=== PATIENT | male | born 1955 | race Caucasian/White ===

== ENCOUNTER 2017-01-07 12:43 | Inpatient (IN) | payer OTHER ==
[~2017-01-07] VITALS: Ht 177.8 cm; Wt 98.2 kg
[2017-01-07 13:03] LABS: EOSINOPHIL COUNT 0.1 K/uL (0-0.3); HEMATOCRIT 42.5 % (38.0-50.0); IMMATURE GRANULOCYTE (%) 0.4 % (0.0-0.7); INSTRUMENT ABS NEUTROPHIL CT 5.9 K/uL; LYMPHOCYTE COUNT 2.4 K/uL (1.0-2.8); MCH 31.6 PG (29.0-34.0); MCHC 33.9 G/DL (30.0-36.0); MCV 93.2 FL (86-99); MEAN PLAT.VOLUME 9.7 uM^3 (9.0-12.4); MONOCYTE (%) 6.1 % (3-12); MONOCYTE COUNT 0.6 K/uL (0-0.8); NEUTROPHIL (%) 65.4 % (45-76); NEUTROPHIL COUNT 5.9 K/uL (1.8-6.4); PLATELET COUNT 235 K/uL (156-360); RBC DIS.WIDTH-CV 12.8 % (11.8-14.6); RBC DIS.WIDTH-SD 44.1 % (39-53); RED BLOOD COUNT 4.56 M/uL (4.00-5.50)
[2017-01-07 13:11] LABS: AMYLASE 32 IU/L (1-118); CHLORIDE 109 mEq/L (99-109); POTASSIUM 4.2 mEq/L (3.7-5.4); SODIUM 141 mEq/L (136-147)
[2017-01-07 13:13] LABS: GLUCOSE 99 mg/dL (70-99)
[2017-01-07 13:14] LABS: ANION GAP 9 MEQ/L (2-14)
[2017-01-07 13:16] LABS: GFR ESTIMATE (CALCULATED) > 59 mL/min/; SERUM ETHYL ALCOHOL < 10 mg/dL
[2017-01-07 13:17] LABS: UREA NITROGEN (BUN) 18 mg/dL (9-23)
[2017-01-07 13:19] LABS: LIPASE 10 U/L (1.0-51.0)
[2017-01-07 13:44] LABS: TROP-I INTERPRETATION NEGATIVE; TROPONIN-I < 0.01 ng/mL (0.0-0.30)
[2017-01-07 15:25] LABS: ADD MIUA? YES; BILIRUBIN NEGATIVE; BLOOD LARGE; COLOR YELLOW ((YELLOW)); GLUCOSE (STRIP) NEGATIVE; KETONES NEGATIVE; LEUKOCYTES NEGATIVE; NITRITE NEGATIVE; PROTEIN (STRIP) NEGATIVE; UROBILINOGEN 0.2 MG/DL (0.2-1.0)
[2017-01-07] MEDS ORDERED: MELOXICAM15 MG PO (15:29)
[2017-01-07 15:52] LABS: AMPHETAMINE NEGATIVE (500 ng/mL); BARBITURATES NEGATIVE (200 ng/mL); BENZODIAZEPINES NEGATIVE (150 ng/mL); COCAINE NEGATIVE (150 ng/mL); INTERNAL CONTROLS VALID? YES; METHADONE NEGATIVE (200 ng/mL); METHAMPHETAMINE NEGATIVE (500 ng/mL); OPIATES (MORPHINE) NEGATIVE (100 ng/mL); OXYCODONE NEGATIVE (100 ng/mL); PHENCYCLIDINE NEGATIVE (25 ng/mL); PROPOXYPHENE NEGATIVE (300 ng/mL); THC CANNABINOIDS NEGATIVE (50 ng/mL); TRICYCLIC ANTIDEPRESSANTS NEGATIVE (300 ng/mL)
[2017-01-07 16:15] LABS: RED BLOOD CELLS TNTC /HPF (0-5); WHITE BLOOD CELLS 0-5 /HPF (0-5)
[2017-01-07 16:16] LABS: BACTERIA NONE SEEN /HPF; EPITHELIAL CELLS NONE SEEN /HPF; MUCUS NONE SEEN /LPF; UCUL ADDED? YES
[2017-01-08] VITALS (7 sets, daily range): BP systolic 109–129; BP diastolic 56–71
[2017-01-08 06:33] LABS: ALKALINE PHOSPHATASE 47 IU/L (3-129); ANION GAP 8 MEQ/L (2-14); CHLORIDE 106 MEQ/L (99-109); GFR ESTIMATE (CALCULATED) > 59 mL/min/; POTASSIUM 4.3 MEQ/L (3.7-5.4); SAMPLE HEMOLYSIS CHECK 0; SAMPLE ICTERIC CHECK 0; SAMPLE LIPEMIA CHECK 0; SODIUM 138 MEQ/L (136-147); TOTAL BILIRUBIN 0.6 MG/DL (0.0-1.0); UREA NITROGEN (BUN) 15 mg/dL (9-23)
[2017-01-08 06:39] LABS: GLUCOSE 181 mg/dL (70-99)
[2017-01-08 06:43] LABS: HEMATOCRIT 32.1 % (38.0-50.0); MCHC 33.6 G/DL (30.0-36.0); MCV 95.3 FL (86-99); MEAN PLAT.VOLUME 10.1 uM^3 (9.0-12.4); PLATELET COUNT 203 K/uL (156-360); RBC DIS.WIDTH-SD 45.9 % (39-53); RED BLOOD COUNT 3.37 M/uL (4.00-5.50); WHITE BLOOD COUNT 6.7 K/uL (4.1-10.2)
[2017-01-09 03:53] VITALS: BP 116/63
[2017-01-09 06:29] LABS: MCH 31.6 PG (29.0-34.0); MCV 95.7 FL (86-99); MEAN PLAT.VOLUME 10.6 uM^3 (9.0-12.4); PLATELET COUNT 182 K/uL (156-360); RBC DIS.WIDTH-CV 13.2 % (11.8-14.6); RBC DIS.WIDTH-SD 46.4 % (39-53); RED BLOOD COUNT 2.82 M/uL (4.00-5.50); WHITE BLOOD COUNT 9.7 K/uL (4.1-10.2)
[2017-01-09 06:52] LABS: ANION GAP 6 MEQ/L (2-14); CHLORIDE 107 MEQ/L (99-109); GFR ESTIMATE (CALCULATED) > 59 mL/min/; POTASSIUM 4.4 MEQ/L (3.7-5.4); SAMPLE HEMOLYSIS CHECK 0; SAMPLE ICTERIC CHECK 0; SAMPLE LIPEMIA CHECK 0; SODIUM 140 MEQ/L (136-147); UREA NITROGEN (BUN) 15 mg/dL (9-23)
[2017-01-09 06:54] LABS: GLUCOSE 117 mg/dL (70-99)
[2017-01-09 08:27] VITALS: BP 124/60
[2017-01-09 14:44] LABS: ADD MIUA? NO; BILIRUBIN NEGATIVE; BLOOD NEGATIVE; COLOR YELLOW ((YELLOW)); GLUCOSE (STRIP) NEGATIVE; KETONES 5; LEUKOCYTES NEGATIVE; NITRITE NEGATIVE; PROTEIN (STRIP) NEGATIVE; SPECIFIC GRAVITY 1.018 (1.000-1.030); UCUL ADDED? NO
[2017-01-09 17:07] VITALS: BP 127/79
[2017-01-10 00:09] VITALS: BP 124/64
[2017-01-10 06:15] LABS: HEMATOCRIT 27.3 % (38.0-50.0); MCH 31.9 PG (29.0-34.0); MCV 96.8 FL (86-99); MEAN PLAT.VOLUME 10.6 uM^3 (9.0-12.4); PLATELET COUNT 179 K/uL (156-360); RBC DIS.WIDTH-CV 13.2 % (11.8-14.6); RBC DIS.WIDTH-SD 47.3 % (39-53); RED BLOOD COUNT 2.82 M/uL (4.00-5.50); WHITE BLOOD COUNT 8.8 K/uL (4.1-10.2)
[2017-01-10 06:36] LABS: ANION GAP 7 MEQ/L (2-14); CHLORIDE 105 MEQ/L (99-109); GFR ESTIMATE (CALCULATED) > 59 mL/min/; GLUCOSE 107 mg/dL (70-99); POTASSIUM 4.1 MEQ/L (3.7-5.4); SAMPLE HEMOLYSIS CHECK 0; SAMPLE ICTERIC CHECK 0; SAMPLE LIPEMIA CHECK 0; SODIUM 141 MEQ/L (136-147); UREA NITROGEN (BUN) 16 mg/dL (9-23)
[2017-01-10 07:30] VITALS: BP 120/70
[2017-01-10] MEDS ORDERED: TRAMADOL HCL50 MG PO (13:00)
[2017-01-10] MEDS ORDERED: SENNA LAX8.6 MG PO (13:00)
[2017-01-10] MEDS ORDERED: CHLORZOXAZONE500 MG PO (13:00)
[2017-01-10] MEDS ORDERED: OXYCODONE HCL5 MG PO (13:00)
[2017-01-10] MEDS ORDERED: LOVENOX40 MG/0.4 SC (13:00)
[2017-01-10] MEDS ORDERED: NIFEREX-150,FE150 MG PO (13:00)
[2017-01-10 15:24] VITALS: BP 116/65
[2017-01-10] MEDS ORDERED: ACID REDUCER20 MG PO (17:45)
[2017-01-10] MEDS ORDERED: MIRALAX17 GM PO (17:48)
[2017-01-10] MEDS ORDERED: OXYCODONE HCL10 MG PO (17:49)
[2017-01-10] MEDS ORDERED: TYLENOL EXTRA500 MG PO (17:52)
[2017-01-10] MEDS ORDERED: ZOFRAN4 MG PO (17:54)
[2017-01-10] MEDS ORDERED: MAALOX ADVANCE355 ML PO (17:57)
== END 2017-01-10 15:49 | DRG 958 ==
LOC: TRA 12:43 → EDOF 15:22 → 3EAST 15:22 → ENRESERV 15:23 → 3EAST 01-08 00:30
PROVIDERS: Emergency Medicine; Surgery
DX: S82.452B Displaced comminuted fracture of shaft of left fibula, initial encounter for open fracture type I or II (principal); S82.252B Displaced comminuted fracture of shaft of left tibia, initial encounter for open fracture type I or II; S06.0X9A Concussion with loss of consciousness of unspecified duration, initial encounter; S12.600A Unspecified displaced fracture of seventh cervical vertebra, initial encounter for closed fracture; S01.01XA Laceration without foreign body of scalp, initial encounter; S00.01XA Abrasion of scalp, initial encounter; S36.892A Contusion of other intra-abdominal organs, initial encounter; S37.012A Minor contusion of left kidney, initial encounter; S92.351A Displaced fracture of fifth metatarsal bone, right foot, initial encounter for closed fracture; S91.301A Unspecified open wound, right foot, initial encounter; S93.124A Dislocation of metatarsophalangeal joint of right lesser toe(s), initial encounter; S40.811A Abrasion of right upper arm, initial encounter; S40.812A Abrasion of left upper arm, initial encounter; V03.10XA Pedestrian on foot injured in collision with car, pick-up truck or van in traffic accident, initial encounter; D62 Acute posthemorrhagic anemia; R40.2410 Glasgow coma scale score 13-15, unspecified time; M50.322 Other cervical disc degeneration at C5-C6 level
CPT/HCPCS: 70450; 71260; 72040; 72125; 72129; 72132; 73590; 73600; 73630; 73700; 74177; 76000; 80048; 80053; 81003; 82150; 83690; 84484; 85025; 85027; 86850; 86900; 86901; 87086; 93005; 97530 GP; 99281; 99284; C1713; G0480; J0131; J0330; J0690; J1100; J1170; J1650; J2250; J2405; J3010; J3480; J7120

== ENCOUNTER 2017-01-10 12:48 | Inpatient (IN) | payer OTHER ==
[~2017-01-10] VITALS: Ht 177.8 cm; Wt 92.2 kg
[~2017-01-10 12:48] MED LIST: MELOXICAM15 MG PO
[2017-01-10] MEDS ORDERED: CHLORZOXAZONE500 MG PO (13:00)
[2017-01-10] MEDS ORDERED: SENNA LAX8.6 MG PO (13:00)
[2017-01-10] MEDS ORDERED: TRAMADOL HCL50 MG PO (13:00)
[2017-01-10] MEDS ORDERED: OXYCODONE HCL5 MG PO (13:00)
[2017-01-10] MEDS ORDERED: NIFEREX-150,FE150 MG PO (13:00)
[2017-01-10] MEDS ORDERED: LOVENOX40 MG/0.4 SC (13:00)
[2017-01-10 16:19] VITALS: BP 108/63
[2017-01-10] MEDS ORDERED: ACID REDUCER20 MG PO (17:45)
[2017-01-10] MEDS ORDERED: MIRALAX17 GM PO (17:48)
[2017-01-10] MEDS ORDERED: OXYCODONE HCL10 MG PO (17:49)
[2017-01-10] MEDS ORDERED: TYLENOL EXTRA500 MG PO (17:52)
[2017-01-10] MEDS ORDERED: ZOFRAN4 MG PO (17:54)
[2017-01-10] MEDS ORDERED: MAALOX ADVANCE355 ML PO (17:57)
[2017-01-10 23:54] VITALS: BP 125/77
[2017-01-11 04:47] VITALS: BP 114/68
[2017-01-11 06:43] LABS: MCH 32.1 PG (29.0-34.0); MCHC 33.3 G/DL (30.0-36.0); MCV 96.2 FL (86-99); MEAN PLAT.VOLUME 10.1 uM^3 (9.0-12.4); RBC DIS.WIDTH-CV 13.3 % (11.8-14.6); RBC DIS.WIDTH-SD 46.5 % (39-53); RED BLOOD COUNT 3.12 M/uL (4.00-5.50); WHITE BLOOD COUNT 8.2 K/uL (4.1-10.2)
[2017-01-11 06:56] LABS: ALKALINE PHOSPHATASE 54 IU/L (3-129); ANION GAP 6 MEQ/L (2-14); CHLORIDE 104 MEQ/L (99-109); GFR ESTIMATE (CALCULATED) > 59 mL/min/; GLUCOSE 93 mg/dL (70-99); POTASSIUM 4.8 MEQ/L (3.7-5.4); SAMPLE HEMOLYSIS CHECK 0; SAMPLE ICTERIC CHECK 0; SAMPLE LIPEMIA CHECK 0; SODIUM 140 MEQ/L (136-147); UREA NITROGEN (BUN) 17 mg/dL (9-23)
[2017-01-11 07:00] LABS: TOTAL BILIRUBIN 0.8 MG/DL (0.0-1.0)
[2017-01-11 07:13] LABS: PLATELET COUNT 235 K/uL (156-360)
[2017-01-11 15:13] VITALS: BP 117/70
[2017-01-12 05:30] VITALS: BP 119/71
[2017-01-12 15:02] VITALS: BP 107/69
[2017-01-13 05:00] VITALS: BP 110/72
[2017-01-13 16:20] VITALS: BP 111/77
[2017-01-14 05:17] VITALS: BP 118/79
[2017-01-14 15:53] VITALS: BP 117/65
[2017-01-15 05:34] VITALS: BP 118/68
[2017-01-15 15:38] VITALS: BP 135/74
[2017-01-16 05:12] LABS: EOSINOPHIL (%) 2.3 % (0-5); EOSINOPHIL COUNT 0.1 K/uL (0-0.3); HEMATOCRIT 28.6 % (38.0-50.0); IMMATURE GRANULOCYTE (%) 1.9 % (0.0-0.7); IMMATURE GRANULOCYTE COUNT 0.1 K/uL; INSTRUMENT ABS NEUTROPHIL CT 3.6 K/uL; LYMPHOCYTE COUNT 1.6 K/uL (1.0-2.8); MCH 32.8 PG (29.0-34.0); MCHC 33.9 G/DL (30.0-36.0); MCV 96.6 FL (86-99); MEAN PLAT.VOLUME 9.5 uM^3 (9.0-12.4); MONOCYTE (%) 11.8 % (3-12); MONOCYTE COUNT 0.7 K/uL (0-0.8); NEUTROPHIL (%) 57.4 % (45-76); NEUTROPHIL COUNT 3.6 K/uL (1.8-6.4); RBC DIS.WIDTH-CV 13.2 % (11.8-14.6); RED BLOOD COUNT 2.96 M/uL (4.00-5.50); WHITE BLOOD COUNT 6.2 K/uL (4.1-10.2)
[2017-01-16 05:18] LABS: PLATELET COUNT 332 K/uL (156-360)
[2017-01-16 05:22] VITALS: BP 125/75
[2017-01-16 05:23] LABS: CHLORIDE 105 mEq/L (99-109); POTASSIUM 4.6 mEq/L (3.7-5.4); SODIUM 139 mEq/L (136-147)
[2017-01-16 05:26] LABS: GLUCOSE 91 mg/dL (70-99)
[2017-01-16 05:27] LABS: ANION GAP 8 MEQ/L (2-14)
[2017-01-16 05:28] LABS: TOTAL BILIRUBIN 1.2 mg/dL (0.0-1.0)
[2017-01-16 05:29] LABS: ALKALINE PHOSPHATASE 68 IU/L (3-129)
[2017-01-16 05:30] LABS: GFR ESTIMATE (CALCULATED) > 59 mL/min/
[2017-01-16 05:31] LABS: UREA NITROGEN (BUN) 25 mg/dL (9-23)
[2017-01-16 15:16] VITALS: BP 113/71
[2017-01-16] MEDS ORDERED: TYLENOL REGULA325 MG PO (15:52)
[2017-01-16] MEDS ORDERED: NIFEREX-150,FE150 MG PO (15:52)
[2017-01-16] MEDS ORDERED: ZOLPIDEM TARTRAT5 MG PO (15:52)
[2017-01-17 05:17] VITALS: BP 114/71
[2017-01-17] MEDS ORDERED: LOVENOX40 MG/0.4 SC (13:21)
[2017-01-17 13:58] LABS: EOSINOPHIL (%) 1.8 % (0-5); EOSINOPHIL COUNT 0.1 K/uL (0-0.3); IMMATURE GRANULOCYTE (%) 1.1 % (0.0-0.7); IMMATURE GRANULOCYTE COUNT 0.1 K/uL; INSTRUMENT ABS NEUTROPHIL CT 5.4 K/uL; LYMPHOCYTE COUNT 1.6 K/uL (1.0-2.8); MCH 32.2 PG (29.0-34.0); MCHC 32.8 G/DL (30.0-36.0); MCV 98.3 FL (86-99); MEAN PLAT.VOLUME 9.3 uM^3 (9.0-12.4); MONOCYTE (%) 8.1 % (3-12); MONOCYTE COUNT 0.6 K/uL (0-0.8); NEUTROPHIL COUNT 5.4 K/uL (1.8-6.4); PLATELET COUNT 366 K/uL (156-360); RBC DIS.WIDTH-CV 13.7 % (11.8-14.6); RBC DIS.WIDTH-SD 47.5 % (39-53); RED BLOOD COUNT 2.95 M/uL (4.00-5.50); WHITE BLOOD COUNT 7.9 K/uL (4.1-10.2)
[2017-01-17 14:34] LABS: ALKALINE PHOSPHATASE 60 IU/L (3-129); ANION GAP 7 MEQ/L (2-14); CHLORIDE 105 MEQ/L (99-109); GFR ESTIMATE (CALCULATED) > 59 mL/min/; GLUCOSE 102 mg/dL (70-99); POTASSIUM 4.3 MEQ/L (3.7-5.4); SAMPLE HEMOLYSIS CHECK 0; SAMPLE ICTERIC CHECK 0; SAMPLE LIPEMIA CHECK 0; SODIUM 137 MEQ/L (136-147); TOTAL BILIRUBIN 0.9 MG/DL (0.0-1.0); UREA NITROGEN (BUN) 22 mg/dL (9-23)
[2017-01-17 16:29] VITALS: BP 111/67
[2017-01-18 05:15] VITALS: BP 116/75
== END 2017-01-18 14:00 | DRG 560 ==
LOC: 3WEST 12:48 → ENPENDDIS 01-18 → 3WEST 01-18 11:55
PROVIDERS: Physical Medicine & Rehabilitation Pain Medicine; Psychiatry & Neurology Neurology
PROC: F07M0ZZ Range of Motion and Joint Mobility Treatment of Musculoskeletal System - Whole Body (ICD-10-PCS; principal; 2017-01-10)
DX: S82.452 Displaced comminuted fracture of shaft of left fibula (principal); R26.9 Unspecified abnormalities of gait and mobility; E83.51 Hypocalcemia; E77.8 Other disorders of glycoprotein metabolism; I95.1 Orthostatic hypotension; S82.252E Displaced comminuted fracture of shaft of left tibia, subsequent encounter for open fracture type I or II with routine healing; S92.351D Displaced fracture of fifth metatarsal bone, right foot, subsequent encounter for fracture with routine healing; S12.600D Unspecified displaced fracture of seventh cervical vertebra, subsequent encounter for fracture with routine healing; S06.0X9D Concussion with loss of consciousness of unspecified duration, subsequent encounter; S36.892D Contusion of other intra-abdominal organs, subsequent encounter; S00.01XD Abrasion of scalp, subsequent encounter; S91.311D Laceration without foreign body, right foot, subsequent encounter; V03.10XD Pedestrian on foot injured in collision with car, pick-up truck or van in traffic accident, subsequent encounter; D62 Acute posthemorrhagic anemia; M25.512 Pain in left shoulder; M25.511 Pain in right shoulder; M79.89 Other specified soft tissue disorders
CPT/HCPCS: 70450; 73030; 80053; 85025; 85027; 93970; 97110 GO; 97530 GP; J1650